=== PATIENT | female | born 1985 | race Asian ===

== ENCOUNTER 2019-06-30 14:57 | Emergency (ER) | payer OTHER ==
--- OUTSIDE RECORDS SUMMARY | 2019-06-30 15:05 | XMS REPORT | Continuity of Care Document ---
:1985 External Reference #:[id number] Author Name JOSIAH Hernández Address [address] [place] [address] Care Team Providers Name Role Phone Ana Maria Yu - Family Medicine Care Team Information Unit Coordinator [phone] Problems Description No Information Available Social History Type Date Description Comments Sex Unknown Tobacco Use Start: Unknown Denies Tobacco Use ETOH Use Never used alcohol Tobacco Use Start: Unknown Patient has never smoked Smoking Status Reviewed: 06/24/19 Patient has never smoked Allergies, Adverse Reactions, Alerts Active Allergies Reaction Severity Comments Date Penicillin rash 11/23/2015 Bactrim rash 01/20/2016 Medications Active Medications SIG Qnty Indications Ordering Date Provider Azithromycin take 2 tablets 6tabs R05 Shekhar Peter, 06/24/2019 250mg (500 mg) day 1 M.D. Tablets then 250 mg x 4 days. Proair HFA take 1-2 puffs 8.500gm R05 Shekhar Peter, 06/24/2019 prior to exercise M.D. 108(90Base) mcg/Act and as needed for Aerosol wheezing and difficulty breathing History Medications No Active Medications Unknown 02/05/2019 - 06/24/2019 Medications Administered in Office Medication SIG Qnty Indications Ordering Provider Date TB Intradermal Test Anaya Rao 04/15/2017 Injection Immunizations CPT Code Status Date Vaccine Lot # [id number] Given 04/15/2017 Influenza vac quadrivalent preservative free 6 [id number] months and up [id number] Given 01/27/2016 MMR Virus Immunization [id number] Given 01/27/2016 Influenza Vac, Quadrivalent, Slit Virus, Im [id number] Vital Signs Date Vital Result Comment 06/24/2019 1:50pm BP Systolic 102 mmHg BP Diastolic 76 mmHg Heart Rate 64 /min Body Temperature 97.8 F Respiratory Rate 16 /min Weight 143.50 lb shoes/coat on 02/05/2019 9:52am BP Systolic 110 mmHg BP Diastolic 80 mmHg Heart Rate 60 /min Body Temperature 98.3 F Respiratory Rate 16 /min Weight 138.00 lb Results Test Acquired Date Facility Test Result H/L Range Note Ua - Micro (a) 02/05/2019 [facility] Appearance clear (607)- - Color yellow Glucose, Urine (Fma/CMC/CTX) neg Bilirubin eng Ketones neg SP Grav 1.015 Blood neg PH 7.5 Protein neg Urobil 0.2 Nitrite neg Leukocytes (Fma/CMC/Centrex) neg Hyaline - /Lpf Granular - /Lpf WBC (a,Centrex) - RBC - Mucus (Fma/CBC/Centrex) - /Lpf Epith occ /Lpf Bacteria rare /Hpf Amorphous (Fma/CMC/Centrex) - /Lpf Crystals, Fluid (Fma/CMC/CTX) - Z#Comments - Urine ([facility]) 02/05/2019 [facility] SP Grav 1.015 (607)- - Urine, (Fma/CMC/CTX) negative Procedures Description No Information Available Medical Devices Description No Information Available Encounters Type Date Location Provider Dx Diagnosis Office Visit 02/05/2019 [facility] Sujey Pierson, R10.814 Left lower 9:45a HALL [employer] quadrant abdominal tenderness Z32.02 Encounter for test, result negative Assessments Date Code Description Provider 06/24/2019 R05 Cough JOSIAH Hernández 06/24/2019 R19.7 Diarrhea, unspecified JOSIAH Hernández 02/05/2019 R10.814 Left lower quadrant abdominal tenderness ETHAN Shaver 02/05/2019 Z32.02 Encounter for test, result negative ETHAN Shaver Plan of Treatment 06/24/2019 - OLIVER Hernández CoughNew Medication:Azithromycin 250 mg - take 2 tablets (500 mg) day 1 then 250 mg x 4 days.Proair HFA 108(90 Base) mcg/ Act - take 1-2 puffs prior to exercise and as needed for wheezing and difficulty breathingNew Labs:Flu A&B (a), Ordered: 06/24/19Quickstrep, Ordered: 06/24/19Comments:Start antibiotic - Azithromycin Salt water garglesElderberry lozenges Ibuprofen, PpyinqgK20.7 Diarrhea, unspecifiedAllComments:PCMHMedication Management Patient Understands medications he's taking? Yes Are there Barriers to Adherence? No Has the patient been asked about herbal supplements and therapies, and OTC meds ? Yes Care Plan1. Patient has been queried about patient's goals/ preferences and functional/lifestyle goals at relevant visits. Yes If relevant, describe: N/A2. Treatment goals as explained to the patient: above3. Are there barriers to meeting treatment goals? No If Yes, please describe:4. Self-Management goals as described to the patient: Yes As always, we strongly encourage a healthy diet and making physical activity a part of your every day life. If you have questions about how or where to start, please contact the office. Functional Status Description No Information Available Mental Status Description No Information Available Referrals Description No Information Available
[2019-06-30 15:15] VITALS: BP 114/80
--- NOTE | 2019-06-30 16:21 | UC ---
Abdominal Pain Female HPI - HPI Summary HPI Summary: 34-year-old female presents with right upper quadrant and epigastric pain that started this morning after eating breakfast. The patient states the pain has progressively worsened throughout the day. States pain worsens with movement and deep breath. No measured fever however states has had some chills. Complains of anorexia, nausea, and states his headache couple episodes of diarrhea. Denies dizziness, lightheadedness, chest pain, shortness of breath, vomiting, blood in stool, melena, back or flank pain, dysuria, frequency, urgency, or hematuria. - History of Current Complaint Chief Complaint: UCAbdominalPain Stated Complaint: STOMACH PAIN Time Seen by Provider: 06/30/19 15:57 Hx Obtained From: Patient Hx Last Menstrual Period: 06/14/19 Pain Intensity: 10 Allergies/Adverse Reactions: Allergies Allergy/AdvReac Type Severity Reaction Status Date / Time Penicillins Allergy Severe Rash Verified 06/30/19 15:15 PMH/Surg Hx/FS Hx/Imm Hx Previously Healthy: Yes - Denies significant PMH - Surgical History Surgical History: Yes Surgery Procedure, Year, and Place: 08/28/2015. teeth removed - Family History Known Family History: Positive: Non-Contributory - Social History Occupation: Student Lives: Dormitory/Roommates Alcohol Use: None Substance Use Type: None Smoking Status (MU): Never Smoked Tobacco Have You Smoked in the Last Year: No Review of Systems All Other Systems Reviewed And Are Negative: Yes Constitutional: Positive: Chills. Negative: Fever Respiratory: Positive: Negative Cardiovascular: Positive: Negative Gastrointestinal: Positive: Abdominal Pain, Diarrhea, Nausea. Negative: Vomiting Genitourinary: Negative: Dysuria, Hematuria, Frequency, Urgency Musculoskeletal: Positive: Negative Neurological/Mental Status: Positive: Negative Is Patient Immunocompromised?: No Physical Exam - Summary Physical Exam Summary: GENERAL APPEARANCE: Well developed, well nourished, alert and cooperative, and appears to be in no acute distress. EYES: Conjunctiva clear. No drainage. EARS: External auditory canals and tympanic membranes clear, hearing grossly intact. NOSE: No nasal discharge. THROAT: Pharynx normal. No tonsilar inflammation, swelling, exudate, or lesions. Uvula midline. NECK: Neck supple, non-tender without lymphadenopathy. CARDIAC: Normal S1 and S2. No S3, S4 or murmurs. Rhythm is regular. There is no peripheral edema, cyanosis or pallor. Extremities are warm and well perfused. Capillary refill is less than 2 seconds. Peripheral pulses intact. LUNGS: Clear to auscultation without rales, rhonchi, wheezing or diminished breath sounds. ABDOMEN: Positive bowel sounds. Soft, nondistended abdomen. Right upper quadrant and epigastric tenderness without guarding or rebound. No masses or hepatosplenomegally. No CVA tenderness. MUSKULOSKELETAL: ROM intact to all extremities. No joint erythema or tenderness. Normal muscular development. Normal gait. SKIN: Skin normal color, texture and turgor with no lesions or eruptions. Triage Information Reviewed: Yes Vital Signs: Initial Vital Signs Temp 97.3 F 06/30/19 15:10 Pulse 59 06/30/19 15:10 Resp 16 06/30/19 15:10 BP 114/80 06/30/19 15:10 Pulse Ox 99 06/30/19 15:10 Vital Signs Reviewed: Yes Abd Pain Female Course/Dx - Course Course Of Treatment: 34-year-old female presents with right upper quadrant and epigastric pain that started this morning after eating breakfast. The patient states the pain has progressively worsened throughout the day. States pain worsens with movement and deep breath. No measured fever however states has had some chills. Complains of anorexia, nausea, and states his headache couple episodes of diarrhea. Denies dizziness, lightheadedness, chest pain, shortness of breath, vomiting, blood in stool, melena, back or flank pain, dysuria, frequency, urgency, or hematuria. Afebrile. Vital signs stable. On exam patient had right upper quadrant and epigastric tenderness without guarding or rebound an otherwise unremarkable exam. Discussed with the patient that based on the location and worsening of her pain I would be concerned about possible gallbladder disease and I would recommend evaluation in the emergency room at this time. Patient is agreeable to this and elects to transport by private vehicle with her driving. - Differential Dx/Diagnosis Differential Diagnosis: Gall Bladder Disease, Pancreatitis, Other - Gastroenteritis Provider Diagnosis: RUQ abdominal pain Discharge ED - Sign-Out/Discharge Documenting (check all that apply): Patient Departure All imaging exams completed and their final reports reviewed: No Studies - Discharge Plan Condition: Stable Disposition: HOME-RECOMMEND TO ED Referrals: Gigi,Ana Maria, MD [Primary Care Provider] - Additional Instructions: Due to the location of your abdominal pain I am concerned that your symptoms could represent some gallbladder disease and I am recommending that she be evaluated in the emergency room at this time. Please go directly to the emergency room from here. Do not eat or drink anything until after you have been evaluated in the emergency room. - Billing Disposition and Condition Condition: STABLE Disposition: Home-Recommend to ED - Attestation Statements Provider Attestation: I was available for consult. This patient was seen by the MARGARET. The patient was not presented to, seen by, or examined by me. -Josr
== END 2019-06-30 16:30 | disposition home health service (06) ==
LOC: UCEAST 14:57
DX: R10.11 Right upper quadrant pain (principal); R63.0 Anorexia; R11.0 Nausea; R51 Headache; R19.7 Diarrhea, unspecified; R50.9 Fever, unspecified
CPT/HCPCS: 99212; G0463

== ENCOUNTER 2019-06-30 16:52 | Emergency (ER) | payer OTHER ==
[2019-06-30 18:40] LABS: ABS Eosinophils 0.1 10^3/ul (0-0.6); ABS Lymphocytes 2.3 10^3/ul (1.0-4.8); ABS Monocytes 0.5 10^3/ul (0-0.8); ABS Neutrophils 8.1 10^3/ul (1.5-7.7); Eosinophil % 1.2 %; Hematocrit 44 % (35-47); Hemoglobin 15.3 g/dL (12.0-16.0); Lymphocyte % 21.2 %; Mean Corpuscular HGB Conc 35 g/dL (31-36); Mean Corpuscular Hemoglobin 32 pg (27-31); Mean Corpuscular Volume 92 fL (80-97); Platelet Count 207 10^3/uL (150-450); Red Blood Count 4.81 10^6 /uL (3.70-4.87); Red Cell Distribution Width 13 % (10-15)
[2019-06-30] MEDS: Ondansetron INJ* 2 MG/ML VIAL IV ONE (18:40)
[2019-06-30] MEDS: NS 0.9% 1000 ML** 1,000 ML IV ONE (18:41)
[2019-06-30 18:56] LABS: ALT 19 U/L (7-52); AST 16 U/L (13-39); Albumin 4.8 g/dL (3.2-5.2); Albumin/Globulin Ratio 1.5 (1-3); Alkaline Phosphatase 64 U/L (34-104); Anion Gap 8 mmol/L (2-11); Blood Urea Nitrogen 12 mg/dL (6-24); CO2 Carbon Dioxide 25 mmol/L (22-32); Calcium 9.8 mg/dL (8.6-10.3); Chloride 104 mmol/L (101-111); EGFR African American 170.9 (>60); EGFR Non-African American 141.2 (>60); Globulin 3.2 g/dL (2-4); Glucose 110 mg/dL (70-100); Potassium 3.8 mmol/L (3.5-5.0); Sodium 137 mmol/L (135-145)
[2019-06-30 19:00] LABS: HCG Pregnancy < 0.60 mIU/mL
[2019-06-30] MEDS: Ketorolac INJ* 30 MG/ML 1 ML VIAL IV PUSH ONE (19:00)
[2019-06-30] MEDS: Al Hydrox/Mg Hydrox/Simet LIQ* 30 ML UDC PO ONE (19:23)
[2019-06-30] MEDS: Lidocaine 2% VISCOUS* 15 ML UDC PO ONE (19:23)
--- NOTE | 2019-06-30 19:50 | ED ---
Abdominal Pain/Female - HPI Summary HPI Summary: The patient is a 34-year-old female presenting to [facility] with a chief complaint of sharp abdominal pain onset this morning at 0930. She reports that she was eating breakfast when the pain began. She has been experiencing diarrhea, nausea without any vomiting, and a mild cough. She denies any hematochezia or fevers. Symptoms currently rated 9/10 in severity. Food aggravates the pain. She has not taken any medications for pain. No history of similar episodes of this pain. No history of gastric ulcers or increased Aspirin or Motrin use on a regular basis. No recent travel. No past medical history. Nonsmoker, no EtOH, no substance use. Medications reviewed. Allergies noted. - History of Current Complaint Chief Complaint: EDAbdPain Stated Complaint: ABDOMINAL PAIN PER PT Time Seen by Provider: 06/30/19 18:29 Hx Obtained From: Patient Hx Last Menstrual Period: 06/14/19 Onset/Duration: Sudden Onset, Lasting Hours - since 0930, Still Present Timing: Constant Severity Initially: Mild Severity Currently: Moderate Pain Intensity: 9 Pain Scale Used: 0-10 Numeric Location: Other - upper abdomen Radiates: No Character: Sharp Aggravating Factor(s): Food Alleviating Factor(s): NPO Associated Signs and Symptoms: Positive: Cough, Nausea, Diarrhea. Negative: Fever, Blood in Stool, Vomiting Allergies/Adverse Reactions: Allergies Allergy/AdvReac Type Severity Reaction Status Date / Time Penicillins Allergy Severe Rash Verified 06/30/19 15:15 Home Medications: Home Medications Albuterol inh POWDER (NF) [Proair Respiclick] 1 - 2 puff INH DAILY PRN 06/30/19 [History Confirmed 06/30/19] PMH/Surg Hx/FS Hx/Imm Hx Endocrine/Hematology History: Denies: Hx Diabetes Respiratory History: Denies: Hx Asthma History: Reports: Hx Kidney Stones - 03/26/2016 Sensory History: Denies: Hx Contacts or Glasses, Hx Hearing Aid Opthamlomology History: Denies: Hx Contacts or Glasses - Surgical History Surgery Procedure, Year, and Place: 08/28/2015. teeth removed Hx Anesthesia Reactions: No Infectious Disease History: No Infectious Disease History: Denies: Traveled Outside the [place] in Last 30 Days - Family History Known Family History: Positive: Non-Contributory - Social History Alcohol Use: None Hx Substance Use: No Substance Use Type: Reports: None Hx Tobacco Use: No Smoking Status (MU): Never Smoked Tobacco Have You Smoked in the Last Year: No Review of Systems Negative: Fever Positive: Cough - mild Positive: Abdominal Pain - upper, Diarrhea, Nausea. Negative: Vomiting, Other - hematochezia All Other Systems Reviewed And Are Negative: Yes Physical Exam - Summary Physical Exam Summary: Constitutional: Well-developed, Well-nourished, Alert. (-) Distressed Skin: Warm, Dry HENT: Normocephalic; Atraumatic Eyes: Conjunctiva normal Neck: Musculoskeletal ROM normal neck. (-) JVD, (-) Stridor, (-) Tracheal deviation Cardio: Rhythm regular, rate normal, Heart sounds normal; Intact distal pulses; The pedal pulses are 2+ and symmetric. Radial pulses are 2+ and symmetric. (-) Murmur Pulmonary/Chest wall: Effort normal. (-) Respiratory distress, (-) Wheezes, (-) Rales Abd: Soft, (+) RUQ tenderness, (-) Distension, (-) Guarding, (-) Rebound Musculoskeletal: (-) Edema Lymph: (-) Cervical adenopathy Neuro: Alert, Oriented x3 Psych: Mood and affect Normal Triage Information Reviewed: Yes Vital Signs On Initial Exam: Initial Vitals Temp Pulse Resp BP Pulse Ox 96.5 F 61 18 117/83 99 06/30/19 16:53 06/30/19 16:53 06/30/19 16:53 06/30/19 16:53 06/30/19 16:53 Vital Signs Reviewed: Yes Procedures - Sedation Patient Received Moderate/Deep Sedation with Procedure: No Diagnostics - Vital Signs Vital Signs Temp Pulse Resp BP Pulse Ox 06/30/19 19:26 62 16 108/68 100 06/30/19 16:53 96.5 F 61 18 117/83 99 - Laboratory Lab Results: Lab Results 06/30/19 06/30/19 Range/Units 18:27 18:27 WBC 11.0 H (3.5-10.8) 10^3/uL RBC 4.81 (3.70-4.87) 10^6 /uL Hgb 15.3 (12.0-16.0) g/dL Hct 44 (35-47) % MCV 92 (80-97) fL MCH 32 H (27-31) pg MCHC 35 (31-36) g/dL RDW 13 (10-15) % Plt Count 207 (150-450) 10^3/uL MPV 8.0 (7.4-10.4) fL Neut % (Auto) 73.3 % Lymph % (Auto) 21.2 % [place] % (Auto) 4.1 % Eos % (Auto) 1.2 % Baso % (Auto) 0.2 % Absolute Neuts (auto) 8.1 H (1.5-7.7) 10^3/ul Absolute Lymphs (auto) 2.3 (1.0-4.8) 10^3/ul Absolute Monos (auto) 0.5 (0-0.8) 10^3/ul Absolute Eos (auto) 0.1 (0-0.6) 10^3/ul Absolute Basos (auto) 0.0 (0-0.2) 10^3/ul Absolute Nucleated RBC 0.0 10^3/ul Nucleated RBC % 0.0 Sodium 137 (135-145) mmol/L Potassium 3.8 (3.5-5.0) mmol/L Chloride 104 (101-111) mmol/L Carbon Dioxide 25 (22-32) mmol/L Anion Gap 8 (2-11) mmol/L BUN 12 (6-24) mg/dL Creatinine 0.50 L (0.51-0.95) mg/dL Est GFR ( Amer) 170.9 (>60) Est GFR (Non-Af Amer) 141.2 (>60) BUN/Creatinine Ratio 24.0 H (8-20) Glucose 110 H (70-100) mg/dL Calcium 9.8 (8.6-10.3) mg/dL Total Bilirubin 0.40 (0.2-1.0) mg/dL AST 16 (13-39) U/L ALT 19 (7-52) U/L Alkaline Phosphatase 64 (34-104) U/L Total Protein 8.0 (6.4-8.9) g/dL Albumin 4.8 (3.2-5.2) g/dL Globulin 3.2 (2-4) g/dL Albumin/Globulin Ratio 1.5 (1-3) Lipase 23 (11.0-82.0) U/L Beta HCG, Quant < 0.60 mIU/mL Result Diagrams: 06/30/19 18:27 06/30/19 18:27 Lab Statement: Any lab studies that have been ordered have been reviewed, and results considered in the medical decision making process. - Ultrasound Abdomen US Ultrasound Interpretation Completed By: Radiologist Summary of Ultrasound Findings: Impression: 1. The common bile duct is mildly dilated measuring 7 mm diameter but no visible choledocholithiasis. 2. No other acute sonographic pathology. ED physician has reviewed this report. Re-Evaluation - Re-Evaluation First Eval Re-Evaluation Time: 20:15 Comment: We discussed results and plan for discharge. She is advised to consider OTC antacids, and f/u with her PCP for possible GI referral for persistent symptoms. Abdominal Pain Fem Course/Dx - Course Course Of Treatment: 34 y/o female presenting with upper abdominal pain, nausea , and diarrhea since this morning at 0930, worsening with food. No previous GI history. Physical exam significant for RUQ tenderness, soft and nondistended abdomen. IV access obtained. Patient administered fluids, Zofran, GI cocktail, and Toradol. Blood work reveals WBCs of 11, creatinine of 0.5, and glucose of 110. Abd US reveals mildly dilated CBD without choledocholithiasis. Patients symptoms consistent with possible gastritis/GERD. She is instructed to consider trying OTC antacid medications and follow up with her PCP. If the symptoms persist, she may benefit from a GI referral for possible upper endoscopy. Patient understands and is agreeable with this plan. - Diagnoses Provider Diagnoses: Epigastric pain Discharge ED - Sign-Out/Discharge Documenting (check all that apply): Patient Departure - Patient will be discharged home. - Discharge Plan Condition: Stable Disposition: HOME Patient Education Materials: Epigastric Pain (ED) Referrals: Ana Maria Yu MD [Primary Care Provider] - 2 Days Additional Instructions: Follow up with your primary care provider in 1-2 days. Return to the emergency department for any new or worsening symptoms. - Billing Disposition and Condition Condition: STABLE Disposition: Home - Attestation Statements Document Initiated by Scribe: Yes Documenting Scribe: Babita Bryan Provider For Whom Agapito is Documenting (Include Credential): Dr. Scott Cruz, DO Scribe Attestation: Babita Zuniga, scribed for Dr. Scott Cruz, on 06/30/19 at 2046. Scribe Documentation Reviewed: Yes Provider Attestation: The documentation as recorded by the scribe, Babita Bryan accurately reflects the service I personally performed and the decisions made by me, Dr. Scott Cruz, DO Status of Scribe Document: Viewed
[2019-06-30 20:30] VITALS: BP 119/83
== END 2019-06-30 20:29 | disposition home or self-care (01) ==
LOC: ED 16:52
DX: R10.13 Epigastric pain (principal); Z87.442 Personal history of urinary calculi; Z88.0 Allergy status to penicillin
CPT/HCPCS: 36415; 76705; 80053; 83690; 84702; 85025; 96361; 96374; 96375; 99282; A9270-GY; J1885; J2405